=== PATIENT | male | born 1980 ===

== ENCOUNTER 2024-06-24 06:24 | Day surgery (SDC) | payer SELFPAY | END 2024-06-24 10:42 | disposition home or self-care (01) | LOC: GI 06:24 | PROVIDERS: ATTENDING PHYSICIAN Surgery; FAMILY PHYSICIAN Family Medicine | DX: Z12.11 Encounter for screening for malignant neoplasm of colon (principal); K62.0 Anal polyp | CPT/HCPCS: 45380; 88305 ==